=== PATIENT | male | born 1995 ===

== ENCOUNTER 2019-07-11 19:14 | Emergency (ER) | payer BC ==
[2019-07-11] MEDS ORDERED: Lactated Ringers 1,000 ML IV ONE (19:18)
[2019-07-11] MEDS ORDERED: Ondansetron 4 MG/2 ML SDV IVPUSH ONE ×2 (19:18→20:01)
[2019-07-11] MEDS ORDERED: Ondansetron 4 MG/2 ML SDV ONE (19:18)
--- NOTE | 2019-07-11 19:28 | EDM.PDOC ---
ED HPI GENERAL MEDICAL PROBLEM - General Chief Complaint: Neuro Symptoms/Deficits Stated Complaint: SEIZURE Time Seen by Provider: 07/11/19 19:28 Source of Information: Reports: Patient History Limitations: Reports: No Limitations - History of Present Illness INITIAL COMMENTS - FREE TEXT/NARRATIVE: This patient is a 23-year-old male with past medical history of a possible seizure (no formal diagnosis of a seizure disorder) presenting with concern for seizure. Patient was at a birthday [employer], sitting in a chair. His friend stated that he fell out of the chair onto the ground and exhibiting whole body shaking activity. Unfortunately, he arrives to the ER without this friend so we are on clear how long this lasted. He believes that he may have hit his head. His friends assisted him back into the chair and called 911. He denies any preceding symptoms such as chest discomfort, shortness of breath, nausea, visual disturbance, or diaphoresis. At present, he complains of a mild coronal type headache and muscle tension in his bilateral trapezius muscles. He denies any recent head trauma or illness or fever, or neck stiffness. No other complaints are voiced. - Related Data Allergies Allergy/AdvReac Type Severity Reaction Status Date / Time peanut Allergy Cannot Verified 07/11/19 19:24 Remember Home Meds: Home Meds . [No Known Home Meds] 07/11/19 [History] Past Medical History HEENT History: Reports: None Cardiovascular History: Reports: None Respiratory History: Reports: Asthma Gastrointestinal History: Reports: None Genitourinary History: Reports: None Musculoskeletal History: Reports: None Neurological History: Reports: None Other Neuro History: Questionable report of a seizure activity approximately 2 years ago (2018), reportedly had a normal EEG Psychiatric History: Reports: None Endocrine/Metabolic History: Reports: None Hematologic History: Reports: None Immunologic History: Reports: None Oncologic (Cancer) History: Reports: None Dermatologic History: Reports: None - Infectious Disease History Infectious Disease History: Reports: None - Past Surgical History Head Surgeries/Procedures: Reports: None HEENT Surgical History: Reports: None Cardiovascular Surgical History: Reports: None Respiratory Surgical History: Reports: None GI Surgical History: Reports: None Male Surgical History: Reports: None Endocrine Surgical History: Reports: None Neurological Surgical History: Reports: None Musculoskeletal Surgical History: Reports: None Oncologic Surgical History: Reports: None Dermatological Surgical History: Reports: None Social & Family History - Family History Family Medical History: Noncontributory - Tobacco Use Smoking Status *Q: Current Every Day Smoker Years of Tobacco use: 2 Packs/Tins Daily: 0.2 - Caffeine Use Caffeine Use: Reports: None - Alcohol Use Days Per Week of Alcohol Use: 7 Number of Drinks Per Day: 1 Total Drinks Per Week: 7 - Recreational Drug Use Recreational Drug Use: No ED ROS GENERAL - Review of Systems Review Of Systems: See Below Constitutional: Denies: Fever HEENT: Reports: No Symptoms Respiratory: Denies: Shortness of Breath Cardiovascular: Denies: Chest Pain Endocrine: Reports: No Symptoms GI/Abdominal: Reports: Nausea. Denies: Abdominal Pain, Vomiting : Reports: No Symptoms Musculoskeletal: Reports: Shoulder Pain Skin: Denies: Wound Neurological: Reports: Headache, Seizure. Denies: Confusion, Dizziness, Numbness, Paresthesia, Tingling, Difficulty Walking, Weakness, Change in Speech Psychiatric: Reports: No Symptoms Hematologic/Lymphatic: Reports: No Symptoms Immunologic: Reports: No Symptoms - Physical Exam Exam: See Below Text/Narrative:: Vital signs reviewed. Nursing notes reviewed. Constitutional: Awake, alert, non-distressed. Head: Normocephalic, atraumatic. Eyes: EOMI, conjunctiva normal, no discharge, no scleral icterus. Trauma or contusions. Ears, Nose, Throat: External ears and ears normal, moist oral mucosa. TMs clear bilaterally. Cardiovascular: 2+ radial pulse, capillary refill less than 2 seconds. Pulmonary: normal work of breathing, no accessory muscle use. Abdomen/GI: Soft, nontender, nondistended, no guarding or rigidity, no masses. Musculoskeletal: No deformities. Integumentary: Appropriate color for ethnicity, warm, dry, no pallor or jaundice , no rash. Neurologic: Awake, alert, and oriented x3. Cranial nerves II through XII intact. No facial droop or dysarthria. No temporal artery tenderness. Supple neck with normal range of motion. No pronator drift. Normal finger-nose- finger and [id number]. No dysdiadochokinesia. 5/5 strength in all extremities. Sensation intact to light touch x4. Negative Romberg. Normal gait. Able to sit, stand, and ambulate without assistance. Psychiatric: Appropriate mood and affect, normal thought process. EKG INTERPRETATION EKG Date: 07/11/19 Time: 19:26 Rhythm: NSR Rate (Beats/Min): 89 [place]: Normal P-Wave: Present QRS: Normal ST-T: Normal QT: Normal Comparison: NA - No Prior EKG (No delta wave or evidence of preexcitation, no Brugada pattern, no heart block, no ARVD noted, no LVH pattern. QRS within normal limits. No RV strain. No HOCM pattern.) Course - Vital Signs Text/Narrative:: Patient hemodynamically stable, afebrile, well-appearing, looks nontoxic. Differential diagnosis includes but is not limited to: Generalized seizure, arrhythmia, orthostatic syncope, vasovagal syncope, drug/alcohol reaction, anemia, electrolyte disturbance, prolonged QT, bradycardia, arrhythmia, subarachnoid hemorrhage, sentinel bleed, volume depletion, and many others CBC shows erythrocytosis and mild thrombocytopenia. Lactate elevated at 6.4. Metabolic panel shows mild hyponatremia and mildly low CO2, normal creatinine, mild glucose elevation, bilirubin elevated 2.4, AST 123, ALT 158 without any abdominal pain. Neuro examination reassuring, nonfocal. Twelve-lead EKG is reassuring, no evidence of preexcitation or arrhythmia or block. No anemia on hemoglobin. Patient does not appear to be intoxicated. No evidence of other occult trauma. Neck is supple, no photophobia or meningeal signs. Mild headache improved with Tylenol. Head CT negative. Lactate elevation as expected with seizure activity. No abdominal pain despite elevated LFTs, will have patient recheck LFTs in primary medicine clinic in 1 to 2 weeks. Stable to discharge home with outpatient neurology follow-up in 1 to 2 weeks. Counseled patient to avoid driving until evaluated by a neurologist and undergoing further evaluation for possible new epilepsy diagnosis. Strict emergency department return precautions were provided, patient indicated understanding. All questions were answered prior to departure. Discharged in good condition. Last Recorded V/S: Last Vital Signs Temp 36.3 C 07/11/19 19:22 Pulse 111 H 07/11/19 19:22 Resp 18 07/11/19 19:22 BP 145/96 H 07/11/19 19:22 Pulse Ox 98 07/11/19 19:22 - Orders/Labs/Meds Orders: Active Orders 24 hr Category Date Time Status Cardiac Monitoring [RC] . DIRECTED Care 07/11/19 19:18 Active EKG 12 Lead [EKG Documentation Completion] [RC] STAT Care 07/11/19 19:18 Active Pulse Oximetry [RC] ASDIRECTED Care 07/11/19 19:18 Active Labs: Laboratory Tests 07/11/19 07/11/19 07/11/19 Range/Units 19:17 19:34 19:34 WBC 8.52 (4.0-11.0) K/uL RBC 4.74 (4.50-5.90) M/uL Hgb 17.4 H (13.0-17.0) g/dL Hct 46.4 (38.0-50.0) % MCV 97.9 (80.0-98.0) fL MCH 36.7 H (27.0-32.0) pg MCHC 37.5 H (31.0-37.0) g/dL RDW Std Deviation 45.4 (28.0-62.0) fl RDW Coeff of [place] 13 (11.0-15.0) % Plt Count 108 L (150-400) K/uL MPV 9.70 (7.40-12.00) fL Neut % (Auto) 80.2 H (48.0-80.0) % Lymph % (Auto) 10.1 L (16.0-40.0) % Cross % (Auto) 9.4 (0.0-15.0) % Eos % (Auto) 0.1 (0.0-7.0) % Baso % (Auto) 0.2 (0.0-1.5) % Neut # (Auto) 6.8 H (1.4-5.7) K/uL Lymph # (Auto) 0.9 (0.6-2.4) K/uL Cross # (Auto) 0.8 (0.0-0.8) K/uL Eos # (Auto) 0.0 (0.0-0.7) K/uL Baso # (Auto) 0.0 (0.0-0.1) K/uL Nucleated RBC % 0.0 /100WBC Nucleated RBCs # 0 K/uL Lactate 6.4 H* (0.20-2.00) mmol/L Sodium 132 L (136-148) mmol/L Potassium 3.9 (3.5-5.1) mmol/L Chloride 93 L (98-107) mmol/L Carbon Dioxide 20.7 L (21.0-32.0) mmol/L BUN 12 (7.0-18.0) mg/dL Creatinine 1.3 (0.8-1.3) mg/dL Est Cr Clr Drug Dosing 94.93 mL/min Estimated GFR (MDRD) > 60.0 ml/min Glucose 153 H (74-106) mg/dL Calcium 9.5 (8.5-10.1) mg/dL Total Bilirubin 2.4 H (0.2-1.0) mg/dL AST 123 H (15-37) IU/L ALT 158 H (14-63) IU/L Alkaline Phosphatase 87 (46-116) U/L Total Protein 7.9 (6.4-8.2) g/dL Albumin 4.8 (3.4-5.0) g/dL Globulin 3.1 (2.6-4.0) g/dL Albumin/Globulin Ratio 1.5 (0.9-1.6) Meds: Medications Discontinued Medications Generic Name Dose Route Start Last Admin Trade Name Freq PRN Reason Stop Dose Admin Acetaminophen 1,000 mg 07/11/19 19:40 07/11/19 19:45 Tylenol Extra Strength PO 07/11/19 19:41 1,000 mg ONETIME ONE Administration Lactated Ringer's 1,000 mls @ 1,000 mls/hr 07/11/19 19:18 07/11/19 19:24 Ringers, Lactated IV 07/11/19 20:17 1,000 mls/hr .BOLUS ONE Administration Ondansetron HCl 4 mg 07/11/19 19:18 07/11/19 19:23 Zofran IVPUSH 07/11/19 19:19 4 mg ONETIME ONE Administration Ondansetron HCl Confirm 07/11/19 19:18 07/11/19 19:32 Zofran Administered 07/11/19 19:19 Not Given Dose 4 mg .ROUTE .STK-MED ONE Ondansetron HCl 4 mg 07/11/19 20:01 07/11/19 20:07 Zofran IVPUSH 07/11/19 20:02 4 mg ONETIME ONE Administration Departure - Departure Time of Disposition: 20:44 Disposition: Home, Self-Care 01 Condition: Good Clinical Impression: First time seizure, Abnormal liver function tests - Discharge Information *PRESCRIPTION DRUG MONITORING PROGRAM REVIEWED*: Not Applicable *COPY OF PRESCRIPTION DRUG MONITORING REPORT IN PATIENT HEAVEN: Not Applicable Instructions: Liver Function Tests, Seizure, Adult, [id number] Referrals: Tiana Brown MD [Physician] - 1 Week (Follow-up of reported seizure.) [facility] [Provider Group] - 1 Week (Follow-up of elevated liver function tests. Recommend not drinking alcohol in the mean-time.) Forms: ED Department Discharge Additional Instructions: Thank you for choosing the [facility] emergency department in [place] for your medical needs today. It was our pleasure caring for you. You were seen in the emergency department for a first-time seizure. You will be referred to our neurologist Dr. Brown for routine follow-up in the next 1 to 2 weeks. I also recommend that you follow-up with a primary medical clinic to have your abnormally elevated liver function tests rechecked. In the meantime, I would recommend you not drink alcohol until the retesting can be done. Please return the emergency department immediately if your symptoms worsen or if you feel worse. The following information is given to patients seen in the emergency department who are being discharged to home. This information is to outline your options for follow-up care. We provide all patients seen in our emergency department with a follow-up referral. The need for follow-up, as well as the timing and circumstances, are variable depending upon the specifics of your emergency department visit. If you don't have a primary care physician on staff, we will provide you with a referral. We always advise you to contact your personal physician following an emergency department visit to inform them of the circumstance of the visit and for follow-up with them and/or the need for any referrals to a consulting specialist. The emergency department will also refer you to a specialist when appropriate. This referral assures that you have the opportunity for follow-up care with a specialist. All of these measure are taken in an effort to provide you with optimal care, which includes your follow-up. Under all circumstances we always encourage you to contact your private physician who remains a resource for coordinating your care. When calling for follow-up care, please make the office aware that this follow-up is from your recent emergency room visit. If for any reason you are refused follow-up, please contact the [facility] Department at and asked to speak to the emergency department charge nurse. If you do not have a primary care physician that is caring for you, you can contact these clinics below to set up an appointment to establish care: [facility] [address], [place] [address] [facility] [address] [place] [id number] Sepsis Event Note - Evaluation Sepsis Screening Result: No Definite Risk - Focused Exam Vital Signs: Vital Signs Temp Pulse Resp BP Pulse Ox 07/11/19 19:22 36.3 C 111 H 18 145/96 H 98 Date Exam was Performed: 07/11/19 Time Exam was Performed: 20:44 - My Orders Last 24 Hours: My Active Orders 07/11/19 19:18 Cardiac Monitoring [RC] . DIRECTED EKG 12 Lead [EKG Documentation Completion] [RC] STAT Pulse Oximetry [RC] ASDIRECTED - Assessment/Plan Last 24 Hours: My Active Orders 07/11/19 19:18 Cardiac Monitoring [RC] . DIRECTED EKG 12 Lead [EKG Documentation Completion] [RC] STAT Pulse Oximetry [RC] ASDIRECTED
[2019-07-11] MEDS ORDERED: Acetaminophen 500 MG Tab PO ONE (19:40)
[2019-07-11 19:48] LABS: BLOOD UREA NITROGEN,BUN 12 mg/dL (7.0-18.0); CARBON DIOXIDE,CO2 20.7 mmol/L (21.0-32.0); CHLORIDE,CL 93 mmol/L (98-107); GLUCOSE RANDOM 153 mg/dL (74-106); POTASSIUM,K 3.9 mmol/L (3.5-5.1); SODIUM,NA 132 mmol/L (136-148)
--- NOTE | 2019-07-11 20:43 | CT ---
INDICATION: Seizure. Syncope TECHNIQUE: CT head without contrast. COMPARISON: None available FINDINGS: The ventricles and sulci are within normal limits. There is no mass effect or midline shift. There is no loss of de la cruz-white differentiation. There is no evidence of gross acute intracranial hemorrhage. No acute calvarial fracture is seen. There is mild left maxillary sinus mucosal thickening. The mastoid air cells are clear. The visualized orbits are within normal limits. IMPRESSION: No evidence of an acute intracranial hemorrhage, mass effect or loss of de la cruz-white differentiation. Please note that MRI is more sensitive for evaluation of seizures. Dictated by Carlos Valdez MD @ 07/11/2019 8:41:17 PM Please note that all CT scans at this facility use dose modulation, iterative reconstruction, and/or weight-based dosing when appropriate to reduce radiation dose to as low as reasonably achievable. Dictated by: Carlos Valdez MD @ 07/11/2019 20:41:26 (Electronically Signed)
== END 2019-07-11 20:58 | disposition home or self-care (01) ==
LOC: MW.ED 19:14
DX: R56.9 Unspecified convulsions (principal); R79.89 Other specified abnormal findings of blood chemistry; Z91.010 Allergy to peanuts; J45.909 Unspecified asthma, uncomplicated; F17.210 Nicotine dependence, cigarettes, uncomplicated
CPT/HCPCS: 36415; 70450; 80053; 83605; 85025; 93005; 96374; 96376; 99285; A9270; J2405; J7120; 99283